=== PATIENT | female | born 2000 | race Two or more races ===

== ENCOUNTER 2020-12-20 03:03 | Outpatient (CLI) | payer OTHER ==
[2020-12-20] MEDS ORDERED: PRENATAL TABLE1 EAC1 PO (03:19)
== END 2020-12-20 13:50 | disposition home or self-care (01) ==
LOC: OBS/DEL 03:03
PROVIDERS: ATTEND Obstetrics & Gynecology
DX: O47.1 False labor at or after 37 completed weeks of gestation (principal); Z3A.37 37 weeks gestation of pregnancy

== ENCOUNTER 2020-12-22 23:44 | Inpatient (IN) | payer OTHER ==
[~2020-12-22] VITALS: Ht 154.9 cm; Wt 68.0 kg
[~2020-12-22 23:44] MED LIST: PRENATAL TABLE1 EAC1 PO
== END 2020-12-25 16:10 | DRG 807 ==
LOC: LDR 23:44 → OB/GYN 23:44
PROVIDERS: ADMIT Obstetrics & Gynecology; ATTEND Obstetrics & Gynecology
PROC: 4A0HXFZ Measurement of Products of Conception, Cardiac Rhythm, External Approach (ICD-10-PCS; 2020-12-22)
PROC: 10E0XZZ Delivery of Products of Conception, External Approach (ICD-10-PCS; principal; 2020-12-23)
PROC: 0KQM0ZZ Repair Perineum Muscle, Open Approach (ICD-10-PCS; 2020-12-23)
DX: O80 Encounter for full-term uncomplicated delivery (principal); Z37.0 Single live birth; Z3A.37 37 weeks gestation of pregnancy; Z20.822 Contact with and (suspected) exposure to COVID-19

== ENCOUNTER 2025-05-19 14:21 | Outpatient (CLI) | payer OTHER | END 2025-05-19 14:24 | disposition home or self-care (01) | LOC: PRENATAL 14:21 | PROVIDERS: ATTEND Obstetrics & Gynecology Maternal & Fetal Medicine | DX: O26.843 Uterine size-date discrepancy, third trimester (principal); O36.5930 Maternal care for other known or suspected poor fetal growth, third trimester, not applicable or unspecified; Z3A.30 30 weeks gestation of pregnancy ==

== ENCOUNTER → 2025-06-07 14:09 | Outpatient (CLI) | payer OTHER | END | disposition home or self-care (01) | LOC: PRENATAL 14:09 | PROVIDERS: ATTEND Obstetrics & Gynecology Maternal & Fetal Medicine | DX: O26.843 Uterine size-date discrepancy, third trimester (principal); O36.8130 Decreased fetal movements, third trimester, not applicable or unspecified; O36.5930 Maternal care for other known or suspected poor fetal growth, third trimester, not applicable or unspecified; Z3A.31 31 weeks gestation of pregnancy ==